=== PATIENT | female | born 1985 | race Caucasian/White ===

== ENCOUNTER 2017-03-09 06:29 | Emergency (ER) | payer MEDICARE, MEDICAID ==
[~2017-03-09] VITALS: Ht 170.2 cm; Wt 72.7 kg
[2017-03-09 06:31] VITALS: BP 108/69; PULSE 106; RESP 18; O2SAT 98
--- NOTE | 2017-03-09 06:32 | ED.REPORT ---
HPI-Chest Pain Under 40 Date of Service Mar 09, 2017 ED Provider: Rodríguez Weinberg MD The pt is a 31 y/o female presenting to the ED complaining of L rib pain. She describes waking up this morning with severe L rib pain feeling like someone had "punched her". The pain does not radiate and is increased w/ deep inspirations. Denies fever, diaphoresis, chills, cough, nausea, or vomiting. The pt reports no trauma to cause this episode and had an episode of L rib pain in 2010 as well. She took Advil before she came here for the pain, is on the patch for control, and denies a hx of blood clots or out of country travel. Nursing Notes Stated Complaint: LEFT RIB PAIN Chief Complaint: Respiratory Complaints Nursing Notes Reviewed: Yes (1jiajietech, meds not reconciled) Allergies: Coded Allergies: cephalexin (Verified Allergy, Unknown, rash, 02/15/14) nitrofurantoin (Verified Allergy, Unknown, rash, 02/15/14) No Active Prescriptions or Reported Meds General Time Seen by MD: 06:30 Chief Complaint Other (L rib pain ) Hx Obtained From: Patient Arrived By: Walk-in Sudden in Onset?: Yes Onset Occurred: Just prior to arrival Symptom Duration: Since onset Recent Healthcare: No recent doctor visit, No recent hospitalization Similar Sx Previous: No Past Medical History Past Medical History Ovarian cyst Cellulitis Otitis media L rib pain Past Surgical History denies Smoking History Former Smoker (quit in 2008), Never Smoker Social History Alcohol Use: Denies alcohol use Drug Use: Denies drug use Occupation lives by self, work at [employer] 05/27/2016 Ambulatory Status Independent Review of Systems L rib pain Constitutional: Denies: Chills, Fever Respiratory: Reports: Shortness of breath (secondary to pain ), Denies: Non-productive cough GI: Denies: Nausea, Vomiting Skin: Denies Diaphoresis Complete sys rev & neg: except as marked. Physical Exam Initial Vital Signs Vital Signs (First) Date Time Temp Pulse Resp B/P Pulse Ox O2 Delivery O2 Flow Rate FiO2 03/09/17 06:31 36.7 106 18 108/69 98 Room Air Initial VS: Reviewed, Unavailable (none on chart, ordered) Head / Eyes: Atraumatic, Normocephalic, PERRL Neck: Supple, Non-tender, Full range of motion Extremities: Vascular intact, Neuro intact, No swelling, No tenderness Skin: Warm, Dry, No cyanosis Neurologic: Alert, Oriented, Nonfocal Psychiatric: Mood/affect normal, Behavior normal, Normal thought content General/Constitutional: Awake, Alert Respiratory / Chest: Breath sounds NL, Breath sounds = bilat Moderate pain w/ inspiration Cardiovascular: Regular rhythm, Heart sounds NL Heart Rate / Rhythm: Positive: Tachycardia (Mild ) Neurologic: Oriented X3, Speech NL Psychiatric: Affect NL, Mood NL Interpretation & Diagnostics Lab Results Interpretation Result Diagram: 03/09/17 0720 03/09/17 0720 Test 03/09/17 07:20 03/09/17 07:55 White Blood Count 9.3th/mm3 (3.8-10.1) Red Blood Count 4.58mil/mm3 (3.90-5.20) Hemoglobin 13.5g/dL (12.0-15.6) Hematocrit 38.3% (35.0-46.0) Mean Corpuscular Volume 83.6fL (81-100) Mean Corpuscular Hemoglobin 29.5pg (27.0-35.0) Mean Corpuscular Hemoglobin Concent 35.2% (32.0-37.0) Red Cell Distribution Width 12.8% (12.3-15.4) Platelet Count 167bil/L (150-400) Neutrophils (%) (Auto) 68.2% (40-74) Lymphocytes (%) (Auto) 21.2% (14-46) Monocytes (%) (Auto) 9.5% (4-12) Eosinophils (%) (Auto) 0.8% (0-5) Basophils (%) (Auto) 0.2% (0-3) D-Dimer 4.27mg/L FEU (<0.50) Sodium Level 139mEq/L (134-144) Potassium Level 3.7mEq/L (3.5-5.2) Chloride Level 103mEq/L (97-108) Carbon Dioxide Level 24mmol/L (18-29) Blood Urea Nitrogen 10mg/dL (6-20) Creatinine 0.71mg/dL (0.57-1.00) Estimat Glomerular Filtration Rate 138mL/min (>59) Glucose Level 83mg/dL (60-99) Calcium Level 9.2mg/dL (8.5-10.1) Total Bilirubin 0.4mg/dL (0.0-1.2) Aspartate Amino Transf (AST/SGOT) 11U/L (0-50) Alanine Aminotransferase (ALT/SGPT) 11U/L (0-32) Alkaline Phosphatase 65U/L (25-150) Total Protein 7.1g/dL (6.4-8.4) Albumin 3.7g/dL (3.4-5.0) Human Chorionic Gonadotropin, Qual 0.500 (Negative) Hold Urine Received (Received) Lab Results Interpretation: CBC normal CMP normal D-dimer elevated negative ECG Interpretation ECG Interpretation: Rate 95 Normal sinus rhythm Consider anterior infarct Time: 07:52 Interpreted by: ED physician X-Ray Chest Interpretation Chest Xray Interpretation: Impression: Left basilar atelectasis versus aspiration or pneumonia. Correlate clinically. Short interval followup is recommended w/ resolution of the patient's symptoms to ensure there is no underlying pulmonary pathology. Dictated by: Chas Jaimes [facility] Interpreted: Ximena Adame MD on 03/09/17 at 0942. View: AP & lat Interpretation / Wet Read by: Interpret - Radiologist CT Chest Interpretation Impression: No central or gross filling defect to suggest pulmonary embolism. Suboptimal evaluation of the segmental and subsegmental pulmonary arteries due to heterogenous opacification. On the basis of sufficient clinical suspicion, bilateral lower extremity ultrasound for deep venous thrombosis could also be performed. Small left pleural effusion w/ adjacent and bibasilar atelectasis. No focal consolidation. Dictated by: Neel Giordano M.D. on 03/09/17 at 0920. Approved by Neel Perez M.D. on 03/09/17 at 0931. Study type: CT pulm angiogram Interpretation / Wet Read by: Interpret - Radiologist Re-Eval/Medical Decision Med Decision/Clinical Course This is a 31-year-old female who presented with acute onset of left-sided pleuritic chest discomfort this morning. It is no previous history of DVT or PE , but does have the risk factor of using a control patch. There is no family history of venous thromboembolism that she is aware of. She appears mildly uncomfortable, has a heart rate of 105-but is normotensive and not hypoxic. Her lungs are clear, heart tones are normal, she has no evidence of DVT apparent on clinical exam. EKG chemistries a sinus rhythm, and her tachycardia resolved prior to the 12- lead. Chest x-ray two-view was negative. Blood work is notable for an elevated d-dimer, so CT angiogram was obtained-this was negative for appreciable PE, however the radiologist notes suboptimal opacifications of the sudden segmental vessels, and recommended considering duplex ultrasound if concerned. Given the lack of alternate etiologies of duplex ultrasound was obtained, and was negative. Overall the patient appears well, she paints controlled ibuprofen does not want any further medicine-she overtly appears well. At this point a definitive cause has not been detained, a small micro-and bulbar embolic event is in the differential, but has not been established. I do not think the patient requires hospitalization, and overall she is low risk. The plan therefore is to have her discontinue the control patch, to take a short course of aspirin, continue ibuprofen for pain control, and have a close recheck with the referral to the [facility]. I spoke with the on-call physician to help facilitate follow-up. Careful routine and return precautions were reviewed with both the patient and family. Patient's discharged in good condition Source of Hx: Old records Re-Evaluation/Progress #1: Time of Eval: 10:26 Re-Evaluation/Progress Note: Rechecked pt. Discussed plan for ultrasound. Re-Evaluation/Progress #2: Time of Eval: 11:34 Re-Evaluation/Progress Note: Pt rechecked. Informed pt of plan for treatment. Pt understands and agrees with plan for treatment. F/U instructions and RTER warnings given. All questions addressed. Differential Diagnosis: Positive: Chest pain, acute, Negative: Acute coronary syndrome, Acute myocardial infarct, Anxiety disorder , Congestive heart failure, Dysrhythmia, Esophageal rupture, Gun shot wound chest, Pneumomediastinum, Pneumonia, Pneumothorax, Pulmonary embolism, Rib fracture, Stab wound chest, Stable angina, Unstable angina Counseled Regarding: Diagnosis, Lab results, Need for follow-up, When/why to return to ED Discharge & Departure Primary Impression: Pleuritic chest pain Disposition: Home Discharge Condition All VS Reviewed: Yes Condition: Stable Additional Instructions: 1. Your symptoms were concerning for the possibility of which called a pulmonary embolus which is a small blood clot in the lungs. This can be a side effect of control medications which include a hormone that has a small increased chance of causing these clots. 2. He did not see a sizable clot on her CT scan, could not see the small vessels in the lung particularly well-you therefore had an ultrasound of the legs to look for blood clots in the legs, which is generally where clots originate-and year-old or sounds were negative. 3. I recommend holding off and discontinuing the control medications for the short-term. 4. I recommend taking aspirin 325 mg daily for the next 2 weeks 5. Continue ibuprofen 400 mg up to 800 mg 3 times a day for if needed. 6. If you develop new or worsening symptoms, return directly to the emergency department. 7. Call to schedule a recheck at the [facility] (I called their office to facilitate her follow-up, please let them know you are seen in the emergency department and the need to be rechecked-please call today to schedule) . Referrals: [facility] Scribe Attestation Portions of this note were transcribed by Bo Ag. I, Dr. Weinberg personally performed the history, physical exam and medical decision-making; I reviewed and confirmed the accuracy of the information in the transcribed note. Signed by : Jaqueline Contreras, 03/09/17 and 0705. copies to: [facility] Rodríguez Weinberg MD Mar 09, 2017 06:32 Bo Ag Mar 09, 2017 07:05
[2017-03-09 07:50] LABS: BASOPHILS % (AUTO) 0.2 % (0-3); EOSINOPHILS % (AUTO) 0.8 % (0-5); MONOCYTES % (AUTO) 9.5 % (4-12); Mean Corpuscular Hemoglobin 29.5 pg (27.0-35.0); Mean Corpuscular Volume 83.6 fL (81-100); NEUTROPHILS % (AUTO) 68.2 % (40-74); Platelet Count 167 bil/L (150-400)
--- NOTE | 2017-03-09 11:19 | DRSVH ---
PROCEDURE: CT ANGIO CHEST PULMONARY EMBOLISM ([id number]) INDICATIONS: Pleuritic L CP, Dimer 4.7 TECHNIQUE: After the administration of intravenous contrast, 2 mm thick sections acquired from the pulmonary api linda to the posterior costophrenic angles. 3-dimensional maximum intensity projection (MIP) coronal a nd sagittal reformats were then acquired through the thorax. For radiation dose reduction, the follo wing was used: automated exposure control, adjustment of mA and/or kV according to patient size. COMPARISON: None. FINDINGS: Image quality: Suboptimal opacification of the segmental and subsegmental pulmonary arteries Pulmonary arteries: Pulmonary arteries are normal in size, and demonstrate no intraluminal filling d efects to suggest central pulmonary embolism. However the segmental and subsegmental pulmonary arteri es are not well evaluated. Lungs and pleura: There is a small left pleural effusion with adjacent atelectasis. Scattered mild bi basilar groundglass opacities probably atelectatic. No focal consolidation. No pneumothorax. Central airways appear grossly patent Mediastinum: Heart size is normal, without pericardial effusion. No mediastinal or hilar adenopathy . Thoracic aorta is normal in caliber and enhancement. Esophagus is normal in caliber, without hiat al hernia. Bones and chest wall: No suspicious bony lesions. Ribs and thoracic spine appear intact throughout. Thyroid gland negative. No axillary or supraclavicular adenopathy. Abdomen: Visualized upper abdominal solid organs appear normal in the early arterial phase of enhanc ement. IMPRESSION: No central or gross filling defect to suggest pulmonary embolism. Suboptimal evaluation o f the segmental and subsegmental pulmonary arteries due to heterogeneous opacification. On the basis of sufficient clinical suspicion, bilateral lower extremity ultrasound for deep venous thrombosis cou ld also be performed. Small left pleural effusion with adjacent and bibasilar atelectasis. No focal consolidation. Dictated by: Neel Giordano M.D. on 03/09/2017 at 9:20 Approved by: Neel Giordano M.D. on 03/09/2017 at 9:31
--- NOTE | 2017-03-09 11:19 | DRSVH ---
PROCEDURE: X-RAY CHEST, TWO VIEWS ([id number]) INDICATIONS: Left sided chest pain TECHNIQUE: 2 views of the chest were acquired. COMPARISON: None. FINDINGS: Surgical changes and devices: None. Lungs and pleura: No pleural effusions or pneumothorax. Retrocardiac air space opacity is present o therwise lungs are clear. Mediastinum: Mediastinal contours are normal. Heart size is normal. Bones and chest wall: No suspicious bony abnormalities. Soft tissues appear unremarkable. IMPRESSION: Left basilar atelectasis versus aspiration or pneumonia. Correlate clinically. Short interval followup is recommended with resolution of the patient's symptoms to ensure there is n o underlying pulmonary pathology. Dictated by: Chas BROWNING Interpreted: Ximena Adame MD on 03/09/2017 at 9:42 Transcribed by: GABE on 03/09/2017 at 9:43 Approved by: Ximena Adame M.D. on 03/09/2017 at 10:09
[2017-03-09 13:09] VITALS: BP 101/68; PULSE 89; RESP 10; O2SAT 97
--- NOTE | 2017-03-09 13:59 | DRSVH ---
PROCEDURE: US VENOUS LEG DUPLEX BILATERAL INDICATIONS: pleuritic CP, ro dVT TECHNIQUE: Real-time imaging, as well as color and pulse Doppler interrogation, were performed of the deep veins of both legs from the inguinal ligament to the popliteal fossa. COMPARISON: None. FINDINGS: The deep veins are normally compressible, and free of intraluminal thrombus. Color and pu lse Doppler demonstrate normal phasic intravascular flow. There is normal augmentation response to d istal compression maneuver. IMPRESSION: No deep venous thrombosis identified within either the left or right lower extremities Dictated by: Chas Jaimes [facility] Interpreted: Neel Giordano MD on 03/09/2017 at 11:48 Approved by: Neel Giordano M.D. on 03/09/2017 at 13:57
== END 2017-03-09 13:10 | disposition home or self-care (01) ==
LOC: SED 06:29
DX: R07.81 Pleurodynia (principal); J90 Pleural effusion, not elsewhere classified; Z87.891 Personal history of nicotine dependence; Z79.3 Long term (current) use of hormonal contraceptives; Z88.1 Allergy status to other antibiotic agents; Z88.8 Allergy status to other drugs, medicaments and biological substances
CPT/HCPCS: 36415; 71020; 71275; 80053; 84703; 85025; 85378; 93005; 93970; 99285; Q9967